=== PATIENT | male | born 1985 | race Two or more races ===

== ENCOUNTER 2020-09-03 08:19 | Emergency (ER) | payer MEDICAID, OTHER ==
[~2020-09-03] VITALS: Ht 172.7 cm; Wt 93.0 kg
[2020-09-03 08:22] VITALS: BP 136/100
[2020-09-03] MEDS ORDERED: LIDOCAINE 1% HCL (LOCAL ANESTH.) INJ 20ML MDV IJ ONE (08:45)
== END 2020-09-03 09:18 | disposition home or self-care (01) ==
LOC: ER 08:19
DX: L02.416 Cutaneous abscess of left lower limb (principal)
CPT/HCPCS: 10060; 99283; J2001

== ENCOUNTER 2020-09-05 09:08 | Emergency (ER) | payer MEDICAID ==
[~2020-09-05] VITALS: Ht 172.7 cm; Wt 90.7 kg
[2020-09-05 09:08] VITALS: BP 106/86
== END 2020-09-05 11:19 | disposition home or self-care (01) ==
LOC: ER 09:08
DX: L02.214 Cutaneous abscess of groin (principal); Z48.01 Encounter for change or removal of surgical wound dressing

== ENCOUNTER 2020-11-03 03:10 | Emergency (ER) | payer MEDICAID ==
[~2020-11-03] VITALS: Ht 180.3 cm; Wt 108.9 kg
[2020-11-03 05:47] LABS: Basophils # (auto) 0.1 10 ^3/uL (0-0.2); Basophils % (auto) 0.5 % (0.0-2.0); Eosinophils # (auto) 0 10 ^3/uL (0-0.8); Eosinophils % (auto) 0.1 % (0.0-7.0); Hematocrit 46.9 % (41.0-53.0); Hemoglobin 15.8 g/dL (13.5-17.5); Lymphocytes # (auto) 0.7 10 ^3/uL (0.4-5.4); Lymphocytes % (auto) 4.2 % (10.0-50.0); Mean Corpuscular Hgb Conc. 33.7 g/dL (32.0-36.0); Mean Corpuscular Volume 88.9 fL (80.0-100.0); Monocytes # (auto) 0.7 10 ^3/uL (0-1.3); Monocytes % (auto) 4.1 % (0.0-12.0); Neutrophils % (auto) 91.1 % (37.0-80.0); Nucleated Red Blood Cells % 0.2 %; Platelet Count (auto) 284 10^3/uL (140-450); Red Blood Cells 5.27 10^6/uL (4.5-5.90); White Blood Cell 16.5 10^3/uL (4.4-10.8)
[2020-11-03 06:01] LABS: Acetaminophen < 2.0 ug/mL (10-30); Salicylate 5.6 mg/dL (2.8-20.0)
[2020-11-03 06:03] LABS: Chloride 103 mmol/L (98-107); Potassium 3.9 mmol/L (3.5-5.1); Sodium 135 mmol/L (136-145)
[2020-11-03 06:11] LABS: Alanine Aminotransferase 70 U/L (16-61); Albumin 3.9 g/dL (3.4-5.0); Alkaline Phosphatase 112 U/L (45-117); Anion Gap 9 (5-15); Aspartate Aminotransferase 53 U/L (15-37); BUN/Creatinine Ratio 9.6; Bilirubin, Total 0.7 mg/dL (0.2-1.0); Blood Alcohol < 3.0 mg/dL (0-5); Blood Urea Nitrogen 11 mg/dL (7-18); Calcium 9.6 mg/dL (8.5-10.1); Carbon Dioxide 23 mmol/L (21-32); GFR African American 94 mL/min; GFR Non-African American 77 mL/min; Glucose 81 mg/dL (74-106); Total Protein 8.8 g/dL (6.4-8.2)
[2020-11-03] MEDS ORDERED: SODIUM CHLORIDE 0.9% 1,000 ML IVB ONE ×2 (07:30→08:00)
[2020-11-03 11:11] LABS: Urine Amorphous Crystal FEW /hpf (None Seen); Urine Bacteria NONE SEEN /hpf (None Seen); Urine Blood Negative /uL (Negative); Urine Hyaline Cast FEW /lpf (0 - 2); Urine Mucus FEW (None Seen); Urine Specific Gravity 1.023 (1.001-1.035); Urine WBC 7 /hpf (0 - 3)
[2020-11-03 11:45] LABS: Alcohol, Urine < 3.0 mg/dL (0-10); Amphetamine Screen, Urine NEGATIVE (NEGATIVE); Barbiturate Scree,Urine NEGATIVE (NEGATIVE); Benzodiazephine Screen, Urine NEGATIVE (NEGATIVE); Cocaine Screen, Urine POSITIVE (NEGATIVE); Opiate Scree,Urine NEGATIVE (NEGATIVE); Phencyclidine Screen, Urine NEGATIVE (NEGATIVE)
[2020-11-03 11:56] LABS: Cannabinoid Screen, Urine POSITIVE (NEGATIVE)
[2020-11-03 13:44] VITALS: BP 114/60
[2020-11-03 14:30] LABS: BUN/Creatinine Ratio 9.9; Potassium 4.1 mmol/L (3.5-5.1)
[2020-11-03 14:33] LABS: Bilirubin, Total 0.8 mg/dL (0.2-1.0)
== END 2020-11-03 15:35 | disposition home or self-care (01) ==
LOC: EDBD 03:10 → ER 03:10
DX: F14.10 Cocaine abuse, uncomplicated (principal); F12.10 Cannabis abuse, uncomplicated; R41.82 Altered mental status, unspecified; I10 Essential (primary) hypertension; R74.8 Abnormal levels of other serum enzymes; Z88.5 Allergy status to narcotic agent
CPT/HCPCS: 36415; 71045; 80053; 80307; 80320; 80329; 81001; 83735; 85025; 93005; 96360; 96361; 99285; J7030

== ENCOUNTER 2020-11-17 20:06 | Emergency (ER) | payer MEDICAID ==
[~2020-11-17] VITALS: Ht 172.7 cm; Wt 94.8 kg
[2020-11-17 20:29] VITALS: BP 163/96
[2020-11-17 21:22] LABS: Urine Amorphous Crystal FEW /hpf (None Seen); Urine Bacteria FEW /hpf (None Seen); Urine Blood 3+ /uL (Negative); Urine Hyaline Cast FEW /lpf (0 - 2); Urine Specific Gravity 1.009 (1.001-1.035); Urine WBC 58 /hpf (0 - 3)
[2020-11-17 21:25] LABS: Amphetamine Screen, Urine NEGATIVE (NEGATIVE); Barbiturate Scree,Urine NEGATIVE (NEGATIVE); Benzodiazephine Screen, Urine NEGATIVE (NEGATIVE); Cannabinoid Screen, Urine POSITIVE (NEGATIVE); Cocaine Screen, Urine POSITIVE (NEGATIVE); Phencyclidine Screen, Urine NEGATIVE (NEGATIVE)
[2020-11-17 21:33] LABS: Opiate Scree,Urine NEGATIVE (NEGATIVE)
[2020-11-17 22:08] LABS: Basophils # (auto) 0 10 ^3/uL (0-0.2); Basophils % (auto) 0.3 % (0.0-2.0); Eosinophils # (auto) 0 10 ^3/uL (0-0.8); Eosinophils % (auto) 0.5 % (0.0-7.0); Hematocrit 45.7 % (41.0-53.0); Hemoglobin 16.2 g/dL (13.5-17.5); Lymphocytes # (auto) 1.7 10 ^3/uL (0.4-5.4); Lymphocytes % (auto) 20.7 % (10.0-50.0); Mean Corpuscular Hemoglobin 31.3 pg (28.0-32.0); Mean Corpuscular Hgb Conc. 35.4 g/dL (32.0-36.0); Mean Corpuscular Volume 88.6 fL (80.0-100.0); Monocytes # (auto) 0.9 10 ^3/uL (0-1.3); Monocytes % (auto) 11.4 % (0.0-12.0); Neutrophils # (auto) 5.6 10 ^3/uL (1.6-8.6); Neutrophils % (auto) 67.1 % (37.0-80.0); Platelet Count (auto) 274 10^3/uL (140-450); Red Blood Cells 5.16 10^6/uL (4.5-5.90); White Blood Cell 8.3 10^3/uL (4.4-10.8)
[2020-11-17 22:25] LABS: Alanine Aminotransferase 135 U/L (16-61); Albumin 3.9 g/dL (3.4-5.0); Anion Gap 13 (5-15); Aspartate Aminotransferase 61 U/L (15-37); Blood Urea Nitrogen 6 mg/dL (7-18); Calcium 9.5 mg/dL (8.5-10.1); Carbon Dioxide 22 mmol/L (21-32); Chloride 100 mmol/L (98-107); Glucose 90 mg/dL (74-106); Potassium 3.1 mmol/L (3.5-5.1); Sodium 135 mmol/L (136-145)
[2020-11-17 22:32] LABS: Alkaline Phosphatase 145 U/L (45-117); Bilirubin, Total 0.4 mg/dL (0.2-1.0); GFR African American 118 mL/min; GFR Non-African American 98 mL/min; Total Protein 8.6 g/dL (6.4-8.2)
[2020-11-17 22:33] LABS: BUN/Creatinine Ratio 6.4
== END 2020-11-17 22:54 | disposition left against medical advice (07) ==
LOC: ER 20:14
DX: R07.9 Chest pain, unspecified (principal); Z53.21 Procedure and treatment not carried out due to patient leaving prior to being seen by health care provider
CPT/HCPCS: 36415; 80053; 80307; 81001; 83880; 84484; 85025; 85049; 93005

== ENCOUNTER 2021-01-02 08:42 | Emergency (ER) | payer MEDICAID ==
[~2021-01-02] VITALS: Ht 172.7 cm; Wt 92.1 kg
[2021-01-02 10:27] VITALS: BP 146/99
== END 2021-01-02 10:36 | disposition home or self-care (01) ==
LOC: ER 08:42
DX: L02.224 Furuncle of groin (principal); Z88.5 Allergy status to narcotic agent

== ENCOUNTER 2021-01-18 08:13 | Emergency (ER) | payer MEDICAID ==
[~2021-01-18] VITALS: Ht 172.7 cm; Wt 92.1 kg
[2021-01-18 08:33] VITALS: BP 110/76
== END 2021-01-18 08:54 | disposition home or self-care (01) ==
LOC: ER 08:13
DX: L02.416 Cutaneous abscess of left lower limb (principal); Z88.8 Allergy status to other drugs, medicaments and biological substances

== ENCOUNTER 2024-02-22 07:16 | Emergency (ER) | payer MEDICAID, OTHER ==
[~2024-02-22] VITALS: Ht 175.3 cm; Wt 83.1 kg
[2024-02-22 07:42] VITALS: BP 205/149; PULSE 125; RESP 18; O2SAT 96
[2024-02-22] MEDS ORDERED: SODIUM CHLORIDE 0.9% 1,000 ML IV ONE ×2 (07:45)
[2024-02-22] MEDS ORDERED: LABETALOL HCL 20 MG/4 ML VL IV ONE (08:00)
[2024-02-22 08:59] LABS: Amphetamine Screen, Urine Pos (NEGATIVE)
[2024-02-22 09:00] LABS: Barbiturate Scree,Urine Neg (NEGATIVE); Benzodiazephine Screen, Urine Neg (NEGATIVE); Cocaine Screen, Urine Pos (NEGATIVE); Opiate Scree,Urine Neg (NEGATIVE)
[2024-02-22 09:01] LABS: Cannabinoid Screen, Urine Pos (NEGATIVE); Phencyclidine Screen, Urine Neg (NEGATIVE)
== END 2024-02-22 08:24 | disposition left against medical advice (07) ==
LOC: ER 07:16
DX: I16.1 Hypertensive emergency (principal); F14.90 Cocaine use, unspecified, uncomplicated; F17.210 Nicotine dependence, cigarettes, uncomplicated; Z88.5 Allergy status to narcotic agent; Z79.899 Other long term (current) drug therapy
CPT/HCPCS: 80307

== ENCOUNTER 2024-05-28 07:39 | Emergency (ER) | payer MEDICAID, OTHER ==
[~2024-05-28] VITALS: Ht 170.2 cm; Wt 88.0 kg
[2024-05-28 08:19] VITALS: BP 139/79; PULSE 95; RESP 20; TEMP 97; O2SAT 96
[2024-05-28] MEDS ORDERED: IBUP-1455 PO (08:40)
[2024-05-28] MEDS ORDERED: CEPH500C PO (08:40)
--- NOTE | 2024-05-28 08:41 | ED.PDOC ---
History of Present Illness(SKN HPI Comments Presents with a tender lump to the mid chest wall. Onset started three days ago and is concerned about a possible abscess. Denies drainage fevers chills nausea vomiting diarrhea. Chief Complaint: Abscess Time Seen by MD: 07:58 Primary Care Provider: NONE History of Present Illness: Nurses Notes, Medications, Allergies Allergies: Coded Allergies: Oxycodone (Verified Allergy, Severe, 09/05/20) Information Source: Patient Mode of Arrival: Ambulatory Past Medical History PAST MEDICAL HISTORY: Denies Surgical History: Denies all surgeries Family History Family History: Reviewed,noncontributory to illness, Unknown Social History Smoker: Cigarettes Alcohol: Unknown Drugs: Cocaine, Marijuana, Methamphetamine Lives In: Home All Other Systems: Reviewed and Negative (per hpi) Physical Exam General Appearance: No Apparent Distress, Normal HEENT: Normal ENT Inspection, Pharynx Normal, TMs Normal Neck: Full Range of Motion, Non-Tender, Normal, Normal Inspection Respiratory: Chest Non-Tender, Lungs Clear, No Accessory Muscle Use, No Respiratory Distress, Normal Breath Sounds Cardiovascular: No Edema, No JVD, No Murmur, No Gallop, Normal Peripheral Pulses, Regular Rate/Rhythm Breast Exam: Deferred Gastrointestinal: No Organomegaly, Non Tender, No Pulsatile Mass, Normal Bowel Sounds, Soft Genitalia: Deferred Pelvic: Deferred Rectal: Deferred Extremities: No calf tenderness, Normal capillary refill, Normal inspection, Normal range of motion, Non-tender, No pedal edema Musculoskeletal : Apperance: Normal Neurologic: Alert, roaster operator II-XII nml as Tested, No Motor Deficits, Normal Affect, Normal Mood, No Sensory Deficits Cerebellar Function: Normal Reflexes: Normal Skin: Dry, Normal Color, Warm Lymphatic: No Adenopathy Was a procedure done? Was a procedure done?: No Images 1 - Nonfluctuant cyst with mild surrounding erythema. No crepitus on palpation Differential Diagnosis (INTG) Differential Diagnosis: Other X-Ray, Labs, Meds, VS Vital Signs Date Time Temp Pulse Resp B/P (MAP) Pulse Ox O2 Delivery O2 Flow Rate FiO2 05/28/24 08:19 97.0 95 20 139/79 (99) 96 97.0 05/28/24 08:19 95 20 96 Room Air 05/28/24 07:53 98.2 95 20 137/69 (91) X-Ray, Labs, Meds, VS Comment No indication for I and D at this time. Prescribed p.o. antibiotics for presentation of symptoms Complete course of antibiotic therapy even if symptoms improve or resolve. There should be no leftover antibiotics as this can lead to antibiotic resistant bacteria and even worse infection. Patient verbalized understanding. Patient is stable for discharge at this time. External notes reviewed. Test results and diagnostic imaging interpreted. All diagnostic findings, discharge care, education and instructions provided Follow-up with PCP in 2 to 3 days Patient verbalized understanding and agreed to treatment plan Vital signs stable, afebrile, no acute distress noted Patient ambulatory with strong steady gait Advised to return precautions for any new or worsening symptoms, return to ER immediately for re-evaluation Patient is aware that the purpose of this visit was for an acute medical emergency requiring emergent stabilization. Chronic conditions, including malignancies have not been ruled out. Patient is instructed to follow up with PCP as directed and discharge instructions for continued care and workup. If unable to arrange follow-up, patient is to return to the emergency department for reassessment. Patient (parent or legal guardian if applicable) was given verbal and written discharge instructions and acknowledges understanding. Time of 1ST Reevaluation: 08:30 Reevaluation 1ST: Improved Patient Education/Counseling: Diagnosis, Treatment Family Education/Counseling: Diagnosis, Treatment Departure 1 Departure Time of Disposition: 08:38 Impression: Primary Impression: Inflamed epidermoid cyst of skin Disposition: 01 HOME / SELF CARE / HOMELESS Condition: Stable e-Prescriptions Ibuprofen Micronized (Ibuprofen) 800 Mg Tab 800 MG PO TID for 10 Days, #30 TAB 0 Refills Prov: RAUL OTERO NP 05/28/24 Cephalexin Monohydrate (Cephalexin) 500 Mg Cap 1 CAP PO QID for 7 Days, #28 CAP 0 Refills Prov: RAUL OTERO NP 05/28/24 Discharged With: Self Critical Care Note Critical Care Time?: No Stability Stability form required: No Heart Score Heart Score: Heart Score Response (Comments) Value History N/A 0 EKG N/A 0 Age N/A 0 Risk Factors N/A 0 Troponin N/A 0 Total 0 RAUL OTERO NP May 28, 2024 08:41
== END 2024-05-28 08:53 | disposition home or self-care (01) ==
LOC: ER 07:39
DX: L72.8 Other follicular cysts of the skin and subcutaneous tissue (principal); R07.89 Other chest pain; F17.210 Nicotine dependence, cigarettes, uncomplicated; Z88.5 Allergy status to narcotic agent